=== PATIENT | female | born 1980 | race Caucasian/White ===

== ENCOUNTER 2019-07-31 02:08 | Emergency (ER) | payer SELFPAY ==
[~2019-07-31] VITALS: Ht 177.8 cm; Wt 77.3 kg
[2019-07-31 02:37] VITALS: Ht 177.8 cm; Wt 77.3 kg
[2019-07-31 02:38] LABS: BASOPHILS 0.4 % (0-2); EOSINOPHILS 3.3 % (0-7); HEMATOCRIT 46.6 % (36.0-48.0); HEMOGLOBIN 16.2 g/dL (12-16); IMMATURE GRANULOCYTES 0.3 % (0-5); LYMPHOCYTES 36.8 % (15-50); MCH 31.7 pg (26.0-34.0); MCHC 34.8 g/dL (31.0-37.0); MCV 91.2 fL (80.0-100.0); MEAN PLATELET VOLUME 10.8 fL (7.4-10.4); MONOCYTES 5.5 % (2-11); NEUTROPHILS 53.7 % (40-80); PLATELET COUNT 356 10x3/uL (130-400); RBC 5.11 10x6/uL (4.00-5.40); RDW 12.4 % (11.5-14.5); WBC 14.2 10x3/uL (4.8-10.8)
[2019-07-31 02:46] LABS: ANION GAP 16.1 mmol/L (8-16); CALCIUM 8.7 mg/dL (8.5-10.1); CARBON DIOXIDE 22.7 mmol/L (21.0-32.0); POTASSIUM - SERUM 3.8 mmol/L (3.5-5.1)
[2019-07-31 02:52] LABS: ALBUMIN 3.5 g/dL (3.4-5.0); BILIRUBIN - TOTAL 0.63 mg/dL (0.2-1.3)
[2019-07-31 06:45] VITALS: BP 115/83
== END 2019-07-31 06:55 | disposition home or self-care (01) ==
LOC: D.ER 02:08
PROVIDERS: Family Medicine
DX: T78.2XXA Anaphylactic shock, unspecified, initial encounter (principal)